=== PATIENT | male | born 1995 | race Caucasian/White ===

== ENCOUNTER 2018-06-21 10:22 | Emergency (ER) | payer OTHER ==
[~2018-06-21] VITALS: Ht 188 cm; Wt 149.7 kg
[~2018-06-21 10:22] MED LIST: ADDERALL XR 2525 MG PO; FLEXERIL PO; LEXAPRO20 MG PO; ZOLOFT 50 MG TA50 M1 PO
[2018-06-21] MEDS ORDERED: PROAIR HFA8.5 GM INH (11:48)
[2018-06-21] MEDS ORDERED: TESSALON PERLE100 MG PO (11:48)
[2018-06-21] MEDS ORDERED: ZPAK PO (11:48)
[2018-06-21] MEDS ORDERED: MEDROLDOSEPACK PO (11:48)
[2018-06-21] MEDS ORDERED: ROBITUSSIN100 MG/53 PO (11:48)
[2018-06-21 12:01] VITALS: BP 155/68
--- NOTE | 2018-06-22 14:59 | EKG ---
[place] [address] ELECTROCARDIOGRAM REPORT Name: JERICHO GRANT Room: [facility] HENOK Kapoor#: [id number] Admission: 06/21/18 Attend Phys: Discharge: 06/21/18 Date of : [birth year] Report #: [id number] THIS REPORT FOR: //name// [facility] ED Test Date: 2018-06-21 Test Time: 10:32:13 Pat Name: JERICHO GRANT Department: Room: Gender: M Horn Player: MICHELLE : 1995 Requested By: Natalie Tellez Order Number: [id number] Mary MD: Andrew Baez Measurements Intervals [place] Rate: 78 P: 17 MA: 103 QRS: 56 QRSD: 114 T: 28 QT: 365 QTc: 416 Interpretive Statements Sinus rhythm Short MA interval Incomplete right bundle branch block No previous ECG available for comparison Electronically Signed On 06-22-2018 14:59:22 [employer] by Andrew Baez [email or web address] <ELECTRONICALLY SIGNED> By: Andrew Baez MD, [facility] 06/22/18 1459 1032 1032 Andrew Baez MD, FACC /EPI
== END 2018-06-21 12:01 | disposition home or self-care (01) ==
LOC: M.ERS 10:22
DX: J20.9 Acute bronchitis, unspecified (principal); F90.9 Attention-deficit hyperactivity disorder, unspecified type; F17.210 Nicotine dependence, cigarettes, uncomplicated; Z88.0 Allergy status to penicillin

== ENCOUNTER 2018-07-21 02:37 | Emergency (ER) | payer OTHER ==
[~2018-07-21] VITALS: Ht 188 cm; Wt 135.6 kg
[~2018-07-21 02:37] MED LIST changes: +MEDROLDOSEPACK PO; +PROAIR HFA8.5 GM INH; +ROBITUSSIN100 MG/53 PO; +TESSALON PERLE100 MG PO; +ZPAK PO
[2018-07-21 03:15] LABS: ABSOLUTE EOSINOPHILS 0.3 thou/uL (0.0-0.7); ABSOLUTE LYMPHOCYTES 1.7 thou/uL (0.8-5.3); ABSOLUTE MONOCYTES 0.8 thou/uL (0.0-1.2); ABSOLUTE NEUTROPHILS 5.5 thou/uL (1.6-8.1); BASOPHILS 0.3 %; EOSINOPHILS 3.2 %; HEMATOCRIT 44.1 % (42.0-52.0); HEMOGLOBIN 15.4 gm/dL (14.0-18.0); LYMPHOCYTES 20.4 %; MCH 32.7 pg (26.0-34.0); MCV 93.4 fL (80.0-100.0); MONOCYTES 9.4 %; MPV 8.2 fl. (7.2-11.1); NUCLEATED RBCS 0 /100WBC; PLATELET COUNT* 238 thou/uL (150-400); POLYS 66.7 %; RBC 4.72 mil/uL (4.50-6.00); RDW-CV 13.5 % (10.5-14.5); WBC 8.3 thou/uL (4.0-11.0)
[2018-07-21 03:39] LABS: SALICYLATE < 2.8 mg/dL (2.8-20.0)
[2018-07-21 03:47] LABS: ACETAMINOPHEN < 2 ug/mL (10-30); ALCOHOL < 10 mg/dL (<10)
[2018-07-21 04:00] LABS: ALBUMIN 3.7 g/dL (3.4-5.0); CALCIUM 8.4 mg/dL (8.5-10.1); CREATININE 0.9 mg/dL (0.6-1.3); POTASSIUM 3.8 mmol/L (3.5-5.1); TOTAL BILIRUBIN 0.5 mg/dL (<0.1-1.0); TOTAL PROTEIN 7.1 g/dL (6.4-8.2)
[2018-07-21 04:10] LABS: INFLUENZA A ANTIGEN None Detected (None Detect); INFLUENZA B ANTIGEN None Detected (None Detect)
[2018-07-21 04:24] LABS: URINE BILIRUBIN NEGATIVE (Negative); URINE BLOOD NEGATIVE (Negative); URINE CLARITY CLEAR; URINE COLOR YELLOW; URINE GLUCOSE-RANDOM NEGATIVE (Negative); URINE KETONES TRACE (Negative); URINE LEUKOCYTES-REFLEX NEGATIVE (Negative); URINE NITRITE-REFLEX NEGATIVE (Negative); URINE PROTEIN NEGATIVE (Negative)
[2018-07-21 04:30] LABS: AMP/METHAMP Negative (Negative); BARBITURATES Negative (Negative); BENZODIAZEPINES Negative (Negative); COCAINE Negative (Negative); METHADONE Negative (Negative); OPIATES POSITIVE (Negative); PCP Negative (Negative); THC Negative (Negative)
[2018-07-21] MEDS ORDERED: ZOFRAN4 MG PO (04:38)
[2018-07-21 04:51] VITALS: BP 113/58
== END 2018-07-21 04:51 | disposition home or self-care (01) ==
LOC: M.ERS 02:37
PROVIDERS: Emergency Medicine
DX: R11.2 Nausea with vomiting, unspecified (principal); R42 Dizziness and giddiness; R10.84 Generalized abdominal pain; F90.9 Attention-deficit hyperactivity disorder, unspecified type; Z88.0 Allergy status to penicillin; Z79.899 Other long term (current) drug therapy

== ENCOUNTER 2018-09-15 22:01 | Emergency (ER) | payer OTHER ==
[~2018-09-15] VITALS: Ht 188 cm; Wt 154.2 kg
[~2018-09-15 22:01] MED LIST changes: +ZOFRAN4 MG PO
[2018-09-15] MEDS ORDERED: IBUPROFEN 800800 MG PO (23:15)
[2018-09-15] MEDS ORDERED: NORCO 5-325 TA1 EACH PO (23:15)
[2018-09-15 23:39] VITALS: BP 144/83
== END 2018-09-15 23:40 | disposition home or self-care (01) ==
LOC: M.ERS 22:01
DX: M25.562 Pain in left knee (principal); F17.200 Nicotine dependence, unspecified, uncomplicated; Z88.0 Allergy status to penicillin; Z88.5 Allergy status to narcotic agent; W08.XXXA Fall from other furniture, initial encounter; Y93.89 Activity, other specified; Y92.89 Other specified places as the place of occurrence of the external cause; Y99.8 Other external cause status

== ENCOUNTER 2018-10-10 22:29 | Emergency (ER) | payer OTHER ==
[~2018-10-10] VITALS: Ht 188 cm; Wt 154.2 kg
[~2018-10-10 22:29] MED LIST changes: +IBUPROFEN 800800 MG PO; +NORCO 5-325 TA1 EACH PO
[2018-10-10] MEDS ORDERED: GARAMYCIN5 ML OPHTHALMIC (23:25)
[2018-10-10 23:42] VITALS: BP 141/70
== END 2018-10-10 23:43 | disposition home or self-care (01) ==
LOC: M.ERS 22:29
DX: H10.9 Unspecified conjunctivitis (principal); F17.210 Nicotine dependence, cigarettes, uncomplicated; F90.9 Attention-deficit hyperactivity disorder, unspecified type; Z88.5 Allergy status to narcotic agent; Z88.0 Allergy status to penicillin

== ENCOUNTER 2018-10-16 08:39 | Emergency (ER) | payer OTHER ==
[~2018-10-16] VITALS: Ht 188 cm; Wt 154.2 kg
[~2018-10-16 08:39] MED LIST changes: +GARAMYCIN5 ML OPHTHALMIC
[2018-10-16 08:54] VITALS: BP 150/81
[2018-10-16] MEDS ORDERED: PREDNISONE50 MG PO (09:09)
== END 2018-10-16 10:16 | disposition home or self-care (01) ==
LOC: M.ERS 08:39
DX: J06.9 Acute upper respiratory infection, unspecified (principal); F90.9 Attention-deficit hyperactivity disorder, unspecified type; F17.210 Nicotine dependence, cigarettes, uncomplicated; Z88.0 Allergy status to penicillin; Z88.5 Allergy status to narcotic agent

== ENCOUNTER 2019-02-16 13:20 | Emergency (ER) | payer OTHER ==
[~2019-02-16] VITALS: Ht 188 cm; Wt 150.6 kg
[~2019-02-16 13:20] MED LIST changes: +PREDNISONE50 MG PO
[2019-02-16 13:27] VITALS: BP 145/92
[2019-02-16] MEDS ORDERED: IBUPROFEN 800800 M1 PO (13:52)
[2019-02-16] MEDS ORDERED: NORCO 5-325 TA1 EAC1 PO (13:52)
[2019-02-16] MEDS ORDERED: CIPROFLOXIN HC2.5 M1 OPHTHALMIC (13:52)
== END 2019-02-16 14:06 | disposition home or self-care (01) ==
LOC: M.ERS 13:20
DX: S05.02XA Injury of conjunctiva and corneal abrasion without foreign body, left eye, initial encounter (principal); F90.9 Attention-deficit hyperactivity disorder, unspecified type; F17.210 Nicotine dependence, cigarettes, uncomplicated; Z88.0 Allergy status to penicillin; Z88.5 Allergy status to narcotic agent; X58.XXXA Exposure to other specified factors, initial encounter; Y93.89 Activity, other specified; Y92.89 Other specified places as the place of occurrence of the external cause; Y99.8 Other external cause status

== ENCOUNTER 2019-02-20 01:50 | Emergency (ER) | payer OTHER ==
[~2019-02-20] VITALS: Ht 188 cm; Wt 150.1 kg
[~2019-02-20 01:50] MED LIST changes: +CIPROFLOXIN HC2.5 M1 OPHTHALMIC; +IBUPROFEN 800800 M1 PO; +NORCO 5-325 TA1 EAC1 PO
[2019-02-20 02:00] VITALS: BP 169/107
[2019-02-20] MEDS ORDERED: NORCO 7.5-3251 EACH PO (02:31)
[2019-02-20] MEDS ORDERED: CLEOCIN HCL300 MG PO (02:31)
== END 2019-02-20 02:43 | disposition home or self-care (01) ==
LOC: M.ERS 01:50
DX: S05.02XA Injury of conjunctiva and corneal abrasion without foreign body, left eye, initial encounter (principal); F90.9 Attention-deficit hyperactivity disorder, unspecified type; F17.210 Nicotine dependence, cigarettes, uncomplicated; Z88.5 Allergy status to narcotic agent; Z88.0 Allergy status to penicillin; X58.XXXA Exposure to other specified factors, initial encounter; Y92.89 Other specified places as the place of occurrence of the external cause; Y93.89 Activity, other specified; Y99.8 Other external cause status